=== PATIENT | male | born 1955 | race Two or more races ===

== ENCOUNTER → 2016-12-08 | Outpatient (CLI) | payer OTHER ==
[~2016-12-08] MED LIST: ALPRAZOLAM PO; ASPIRIN PO; ASPIRIN81 MG PO; CARDIZEM SR PO; COREG6.25 MG PO; COUMADIN PO; COUMADIN5 MG PO; DILTIAZEM ER60 MG PO; LUMIGAN2.5 ML OP; LUMIGAN2.5 ML OU; SIMVASTATIN20 MG PO; TAMBOCAR PO; ZOCOR PO
--- NOTE | ~2016-12-08 | MR113 ---
[facility] A Service of [facility] & [facility] RADIOLOGY TEXT RESULTS PATIENT: SINTIA RAPHAEL LOCATION: [facility] : 51 UNIT #: [id number] AGE: [address]: SINTIA RIVERO MD (INT MED) SEX: M ORDER DR: [id number] [address] [address] [id number] O MR#: [id number] Acc #: [id number] NAME: SINTIA RAPHAEL : 1955 SEX: M STUDY DATE/TIME: 12/08/2016 13:03 UNIT: [facility] ROOM: STUDY DESCRIPTION: MR Lumbar Wo Contrast Attending Physician: Sintia Rivero M.D. Referring Physician: Sintia Rivero M.D. Ordering Physician: Sintia Rivero M.D. Primary Care Physician: Sintia Rivero M.D. [facility]ENTER REPORT This report is preliminary unless electronic signature is present. EXAM MRI of the lumbar spine HISTORY Low back pain x2 years off and on pain, in both right and left. Pain worse over the last 10 days. COMPARISON: Lumbar spine films 09/18/2016 FINDINGS Multiplanar multiecho images of the lumbar spine utilizing a high field magnet and dedicated protocol. Normal spinal alignment. Foci of endplate marrow edema noted at the inferior endplate of L1 superior endplate of L2 most likely related to a Schmorl nodes. At L1-2, there is disc space narrowing, disc desiccation but no significant spinal or foraminal stenosis. At L2-3, there is mild disc desiccation, mild circumferential disc bulge with only minimal foraminal narrowing right greater than left. At L3-4, there is mild disc desiccation, mild circumferential disc bulging contributing to mild bilateral foraminal stenosis. Mild facet hypertrophic change. At L4-5, there is a broad-based posterior disc protrusion contributing to mild central canal stenosis and bilateral foraminal stenosis left greater than right. At L5-S1, the disc space is maintained. No spinal foraminal stenosis. Visualized SI joints and paravertebral soft tissues unremarkable. [facility] A Service of [facility] & [facility] RADIOLOGY TEXT RESULTS PATIENT: SINTIA RAPHAEL LOCATION: [facility] : 51 UNIT #: [id number] AGE: [address]: SINTIA RIVERO MD (INT MED) SEX: M ORDER DR: IMPRESSION Mild multilevel degenerative disc changes as described above in level by level detail. Marrow edema noted bordering L1-2 disc space most likely related to adjacent Schmorl nodes, which can be clinically symptomatic. Dictated by... Bipin Curtis M.D. THIS IS AN ELECTRONICALLY VERIFIED REPORT Bipin Curtis M.D. at 12/11/2016 3:57 PM ALEISHA/acosta TD: 12/11/2016 12:35 JOB #: [id number] MRI CENTER REPORT Page 1 of 1
== END | disposition home or self-care (01) ==
LOC: SMRI 12:47
DX: M54.5 Low back pain (principal); M51.36 Other intervertebral disc degeneration, lumbar region
CPT/HCPCS: 72148